=== PATIENT | male | born 1950 | race Caucasian/White ===

== ENCOUNTER 2018-10-08 09:29 | Day surgery (SDC) | payer MEDICARE ==
[~2018-10-08] VITALS: Ht 193 cm; Wt 116.3 kg
[~2018-10-08 09:29] MED LIST: FLUO20CA39 PO; GABA-532 PO; HYDR-4353 PO; HYDR50TA3 PO; cefazolin/dext.iso 2gm/100 ML IV ONE; cefazolin/dext.iso 2gm/50ml 50 ML IV ONE; famotidine 20mg tablet PO ONE; ringers solution, lacted 1,000 ML IV SCH
[2018-10-08 09:40] VITALS: BP 140/79
[2018-10-08 10:52] LABS: BASOPHILS % (AUTO) 0.3 % (0-1); EOSINOPHILS % (AUTO) 0.2 % (0-6); LYMPHOCYTES # (AUTO) 0.8 X10'3 (1.1-4.8); LYMPHOCYTES % (AUTO) 9.4 % (21-51); MEAN CORPUSCULAR HEMOGLOBIN 30.4 PG (27.0-31.0); MEAN CORPUSCULAR HGB CONC 33.8 g/dL (33.0-36.5); MEAN CORPUSCULAR VOLUME 90.1 FL (78-98); MEAN PLATELET VOLUME 8.6 FL (7.4-10.4); MONOCYTES # (AUTO) 0.3 X10'3 (0-0.9); MONOCYTES % (AUTO) 3.1 % (2-12); NEUTROPHILS # (AUTO) 7.1 X10'3 (1.8-7.7); PRE OP HEMOGLOBIN 15.5 g/dL (14.0-17.9); PRE OP PLATELET COUNT 222 X10'3 (140-440); RED CELL DISTRIBUTION WIDTH 14.6 % (11.5-14.5)
[2018-10-08 11:34] LABS: ALBUMIN 3.1 G/DL (3.4-5.0); ALBUMIN/GLOBULIN RATIO 0.9 (1.1-1.5); ALKALINE PHOSPHATASE 73 IU/L (46-116); BLOOD UREA NITROGEN 15 MG/DL (7-18); BUN/CREATININE RATIO 15.3 (5.4-32.0); CALCIUM 8.7 MG/DL (8.5-10.1); CHLORIDE 103 MMOL/L (99-107); CREATININE 0.98 MG/DL (0.60-1.10); PRE OP ALT 32 U/L (30-65); PRE OP ANION GAP 10 (8-16); PRE OP AST 19 U/L (10-37); PRE OP BILIRUB, TOTAL 0.2 MG/DL (0.0-1.0); PRE OP GLUCOSE 125 MG/DL (70-104); PRE OP POTASSIUM 3.6 MMOL/L (3.4-5.1); PRE OP SODIUM 140 MMOL/L (135-145); TOTAL CARBON DIOXIDE 26.6 MMOL/L (24-32); TOTAL PROTEIN 6.6 G/DL (6.4-8.2); eGFR 77 ML/MIN
[2018-10-08] MEDS ORDERED: BUPIVAcaine/PF 2.5mg/ml (0.25%) 10ml vial ONE (11:48)
[2018-10-08] MEDS ORDERED: LIDOcaine 1% 30ml preserv. free vial ONE (11:48)
[2018-10-08] MEDS ORDERED: MIDAZolam 5mg/5ml vial ONE (12:02)
[2018-10-08] MEDS ORDERED: fentaNYL/PF 50MCG/1 ML 2ML syringe ONE (12:02)
[2018-10-08 12:32] VITALS: BP 114/64
--- NOTE | 2018-10-08 12:32 | NUR ---
Received from OR via , accompanied by Anesthesiologist DR. WRIGHT and report given by Anesthesiolgist. PATIENT A&OX4, LUNG SOUNDS CLEAR, VSS CHARTED, NO PAIN PRESENT, INC TO RIGHT TEMPORAL LOBE WITH DERMABOND IN PLACE, NO BLEEDING NOTED, IVF INFUSING ORDERED, WILL CONTIUNE TO MONITOR.
[2018-10-08 12:42] VITALS: BP 109/60
[2018-10-08 12:52] VITALS: BP 110/71
[2018-10-08 13:02] VITALS: BP 116/66
--- NOTE | 2018-10-08 13:02 | NUR ---
PATIENT A&OX4, PATIENT DISCHARGE INSTRUCTIONS GIVEN, PATIENT VERBALIZED UNDERSTANDING. PIV DC'D CATH TIP INTACT, SCD'S DC'D, RIGHT TEMPORAL LOBE INC CD. PATIENT TO PERSONAL VEHICLE VIA W/C ACCOMPANIED BY STAFF AND FAMILY WITH ALL PERSONAL BELONGINGS.
== END 2018-10-08 13:02 | disposition home or self-care (01) ==
LOC: PAS 09:29
PROVIDERS: ATTEND Surgery
DX: R51 Headache (principal); I10 Essential (primary) hypertension; F17.210 Nicotine dependence, cigarettes, uncomplicated; G62.9 Polyneuropathy, unspecified; G89.29 Other chronic pain; Z85.828 Personal history of other malignant neoplasm of skin; Z98.890 Other specified postprocedural states; Z79.899 Other long term (current) drug therapy
CPT/HCPCS: 36415; 37609; 80053; 82948; 85025; 93005; A6255; J0690; J2250; J3010; J3490; J7120; 88305; 88313; A7000

== ENCOUNTER 2019-06-24 05:37 | Day surgery (SDC) | payer MEDICARE ==
[2019-06-23 15:19] LABS: BASOPHILS # (AUTO) 0.1 X10'3 (0-0.2); BASOPHILS % (AUTO) 1.1 % (0-1); EOSINOPHILS # (AUTO) 0.3 X10'3 (0-0.9); EOSINOPHILS % (AUTO) 4.3 % (0-6); LYMPHOCYTES # (AUTO) 2.1 X10'3 (1.1-4.8); LYMPHOCYTES % (AUTO) 29.6 % (21-51); MEAN CORPUSCULAR HGB CONC 34.1 g/dL (33.0-36.5); MEAN CORPUSCULAR VOLUME 90.9 FL (78-98); MEAN PLATELET VOLUME 8.4 FL (7.4-10.4); MONOCYTES # (AUTO) 0.6 X10'3 (0-0.9); MONOCYTES % (AUTO) 8.5 % (2-12); NEUTROPHILS % (AUTO) 56.5 % (42-75); PRE OP HEMATOCRIT 48.7 % (42.0-52.0); PRE OP HEMOGLOBIN 16.6 g/dL (14.0-17.9); PRE OP PLATELET COUNT 237 X10'3 (140-440); RED BLOOD COUNT 5.36 X10'6 (4.70-6.10); RED CELL DISTRIBUTION WIDTH 13.8 % (11.5-14.5)
[2019-06-23 15:38] LABS: ALBUMIN 3.5 G/DL (3.4-5.0); ALBUMIN/GLOBULIN RATIO 0.8 (1.1-1.5); ALKALINE PHOSPHATASE 98 IU/L (46-116); BLOOD UREA NITROGEN 16 MG/DL (7-18); BUN/CREATININE RATIO 15.4 (5.4-32.0); CALCIUM 8.9 MG/DL (8.5-10.1); CHLORIDE 104 MMOL/L (99-107); CREATININE 1.04 MG/DL (0.60-1.10); PRE OP ALT 26 U/L (30-65); PRE OP ANION GAP 9 (8-16); PRE OP AST 16 U/L (10-37); PRE OP BILIRUB, TOTAL 0.3 MG/DL (0.0-1.0); PRE OP GLUCOSE 100 MG/DL (70-104); PRE OP POTASSIUM 3.6 MMOL/L (3.4-5.1); PRE OP SODIUM 141 MMOL/L (135-145); TOTAL CARBON DIOXIDE 27.6 MMOL/L (24-32); TOTAL PROTEIN 7.8 G/DL (6.4-8.2); eGFR 71 ML/MIN
[~2019-06-24] VITALS: Ht 193 cm; Wt 114.8 kg
[2019-06-24] VITALS (16 sets, daily range): BP systolic 119–139; BP diastolic 62–80
[~2019-06-24 05:37] MED LIST changes: -cefazolin/dext.iso 2gm/100 ML IV ONE
[2019-06-24] MEDS ORDERED: ringers solution, lacted 1,000 ML IV SCH (08:03)
[2019-06-24] MEDS ORDERED: hydrALAZINE 20mg/ml inj. IV PRN (08:05)
[2019-06-24] MEDS ORDERED: fentaNYL/PF 50MCG/1 ML 2ML syringe IV PRN ×2 (08:05)
[2019-06-24] MEDS ORDERED: labetalol 20mg/4ml (5mg/ml) syringe IV PRN (08:05)
[2019-06-24] MEDS ORDERED: morphine 4 MG/ML inj SYRINge IV PRN ×2 (08:05)
[2019-06-24] MEDS ORDERED: ondansetron/PF 4mg/2ml inj IV PRN (08:05)
[2019-06-24] MEDS ORDERED: fentaNYL/PF 50MCG/1 ML 2ML syringe ONE (08:59)
[2019-06-24] MEDS ORDERED: MIDAZolam 1mg/ml 10ml vial ONE (08:59)
[2019-06-24] MEDS ORDERED: neomy sulf/bacitrac zn/polymixin b oint 14.2 gm tube TP ONE (09:38)
--- NOTE | 2019-06-24 10:14 | NUR ---
Received from OR via [facility], accompanied by Anesthesiologist DR SANCHES and report given by Anesthesiologist. PT DROWSY, DENIES PAIN, PT W/SAB, DERMATOME LEVEL L 1, PT ABLE TO WIGGLE BILAT FEET, RIGHT HUYNH W/[place] DRSG COVERING CDI, RIGHT INNER BUTTOCKS CHEEK W/DRSG COVERING CDI. Addendum: 06/24/19 at 1029 by Estelle Landon RN Amended: Links added.
--- NOTE | 2019-06-24 11:43 | NUR ---
PT STABLE, DRINKING COFFEE AND WAITING FOR HIS SENSATION TO RETURN TO GO HOME. Addendum: 06/24/19 at 1144 by Estelle Landon RN Amended: Links added.
--- NOTE | 2019-06-24 13:31 | NUR ---
PTS SENSATION IS RETURNING BUT HE STILL FEELS UNEASY ABOUT TRYING TO STAND YET, OTHERWISE PT STABLE, TRANSFERRED TO PAS UNIT FOR D/C TO HOME. D/C INSTRUCTIONS GIVEN AND GONE OVER W/PT PRIOR TO SENDING TO PAS UNIT, PT VERBALIZES UNDERSTANDING. Addendum: 06/24/19 at 1447 by Estelle Landon RN Amended: Links added.
--- NOTE | 2019-06-24 15:00 | NUR ---
pt stayed on pas until he felt comfortable getting oob. ambulated to bathroom, voided without difficulty. ate lunch. css. piv dcd cath intact. dcd in stable condition, taken to car via .
== END 2019-06-24 15:00 | disposition home or self-care (01) ==
LOC: PAS 05:37
PROVIDERS: ATTEND Surgery
DX: L98.8 Other specified disorders of the skin and subcutaneous tissue (principal); D49.2 Neoplasm of unspecified behavior of bone, soft tissue, and skin; L57.0 Actinic keratosis; I10 Essential (primary) hypertension; G62.9 Polyneuropathy, unspecified; G89.29 Other chronic pain; F17.210 Nicotine dependence, cigarettes, uncomplicated; Z79.899 Other long term (current) drug therapy; Z98.890 Other specified postprocedural states
CPT/HCPCS: 11402; 11403; 36415; 80053; 82948; 85025; 93005; J2250; J3010; J7120; A4618; A6449; A7000